=== PATIENT | female | born 1990 | race Hispanic/Latino ===

== ENCOUNTER 2016-05-23 08:15 | Emergency (ER) | payer SELFPAY ==
[2016-05-23] MEDS ORDERED: Benzonatate 100 MG CAP ONE (08:40)
[2016-05-23] MEDS ORDERED: Ondansetron ODT 4 MG TAB ONE (08:40)
[2016-05-23] MEDS ORDERED: Acetaminophen 325 MG TAB ONE (08:40)
--- NOTE | 2016-05-23 09:20 | ERRECORD ---
[facility] EMERGENCY RECORD HPI URI (08:39 [facility]) CHIEF COMPLAINT: Patient presents for evaluation of sore throat, Patient presents for evaluation of nasal congestion, Patient presents for evaluation of cough. HISTORIAN: History provided by patient, fever chills body aches cough sorethroat x 4 days also with nausea symptoms. LOCATION: Symptoms are generalized. QUALITY: Pain is dull in nature. SEVERITY: Maximum severity of symptoms moderate, Currently symptoms are moderate. TIME COURSE: Gradual onset of symptoms, There has been no change in the patient's symptoms over time. ASSOCIATED WITH: No associated chest pain, Associated with chills, Associated with fever, No associated headache, No associated neck pain, No associated shortness of breath. EXACERBATED BY: Patient's condition exacerbated by nothing. RELIEVED BY: Patient's condition relieved by over the counter medications, dayquil / nyquil. ROS CONSTITUTIONAL: Historian reports chills, reports fever. (08:40 [facility]) ENT: Historian reports rhinorrhea, reports sore throat. (08:41 [facility]) CARDIOVASCULAR: Negative cardiovascular review of systems, Historian denies chest pain, denies palpitations. (08:40 [facility]) RESPIRATORY: Historian reports cough. (08:40 [facility]) GI: Historian denies abdominal pain, reports nausea. (08:40 [facility]) GENITOURINARY FEMALE: Negative genitourinary review of systems, Historian denies dysuria, denies frequency. (08:40 [facility]) SKIN: Negative skin review of systems, Historian denies rash, denies skin changes. (08:40 [facility]) NEUROLOGIC: Negative neurologic review of systems, Historian denies headache. (08:40 [facility]) HEMO/LYMPHATIC: Normal hematologic/lymphatic system review, Historian denies abnormal blood clotting. (08:40 [facility]) PAST MEDICAL HISTORY (08:23 [facility]) MEDICAL HISTORY: Notes: SCOLIOSIS, Past medical history includes musculoskeletal disorder. reviewed 04-08-14. FEMALE SURGICAL HISTORY: EYE CORRECTION SURGERY FOR CROSSED EYES.reviewed 04-08-14. PSYCHIATRIC HISTORY: Psychiatric history includes, anxiety. SOCIAL HISTORY: Patient denies alcohol use, Patient denies drug use, Patient has no smoking history. KNOWN ALLERGIES NKDA, IS LACTOSE INTOLERANT &a-1R&a+25V*p+0X*c1445Q*c202B*c15G*c2P*p-0X&a-25V&a+1R Name: Pilar Garcia : 1990 F25 MedRec: [id number] AcctNum: [id number] Prepared: [facility] May 23, 2016 09:16 by Interface Page 1 of 3 pMD [facility] EMERGENCY RECORD CURRENT MEDICATIONS (08:21 [facility]) None VITAL SIGNS (08:18 [facility]) VITAL SIGNS: BP: 129/58, Pulse: 88, Resp: 18, Temp: 99.6 (Oral), Pain: 5, O2 sat: 97 on Room Air, Time: 05/23/2016 08:18. PHYSICAL EXAM CONSTITUTIONAL: Vital signs reviewed, Patient afebrile, Pulse normal, Blood pressure normal, Respiratory rate normal, Patient appears, uncomfortable, Patient appears pain free, Patient alert and oriented to person, place and time. (08:40 [facility]) ENT: Ear exam normal, Nose exam included findings of, clear nasal discharge, Pharynx exam normal. (08:41 [facility]) NECK: Neck exam normal, Neck exam included findings of normal range of motion, Trachea midline, no meningeal signs, no cervical adenopathy, no tenderness. (08:40 [facility]) RESPIRATORY CHEST: Respiratory and chest exam normal, Respiratory exam included findings of no respiratory distress, Breath sounds clear. (08:40 [facility]) CARDIOVASCULAR: Cardiovascular assessment normal, Cardiovascular exam included findings of heart rate regular rate and rhythm, Heart sounds normal. (08:40 [facility]) ABDOMEN FEMALE: Abdominal exam included findings of abdomen nontender, Bowel sounds normal, no distension, no mass, no pulsatile masses, no peritoneal signs, no rigidity, no guarding, no rebound, Rovsing's sign absent. (08:40 [facility]) BACK: Back exam normal, Back exam included findings of normal inspection, range of motion normal, no tenderness. (08:40 [facility]) NEURO: Neuro exam normal, Neuro exam findings include patient oriented to person, place and time, Speech normal, Gait normal. (08:40 [facility]) SKIN: Skin exam normal, Skin exam included findings of skin warm, dry, and normal in color, no rash. (08:40 [facility]) MEDICATION ADMINISTRATION SUMMARY Drug Name: *Tessalon Perles, Dose Ordered: 2 tab(s), Route: Oral, Status: Given, Time: 08:46 05/23/2016, Drug Name: *Tylenol, Dose Ordered: 3 tab(s), Route: Oral, Status: Given, Time: 08:46 05/23/2016, Drug Name: Zofran ODT, Dose Ordered: 4 mg, Route: Oral, Status: Given, Time: 08:43 05/23/2016, *Additional information available in notes, Detailed record available in Medication Service section. PROBLEM LIST No recorded problems DIAGNOSIS (09: [facility]) &a-1R&a+25V*p+0X*g1613H*c202B*c15G*c2P*p-0X&a-25V&a+1R Name: Pilar Garcia : 1990 F25 MedRec: [id number] AcctNum: [id number] Prepared: [facility] May 23, 2016 09:16 by Interface Page 2 of 3 pMD [facility] EMERGENCY RECORD FINAL: PRIMARY: upper respiratory infection. PRESCRIPTION (09:02 [facility]) azithromycin oral: TABLET : 250 mg : ORAL : Quantity: 1 Unit: tab(s) Route: ORAL Schedule: once a day Dispense: 6 Unit: tab(s) May substitute. Refills: No Refills . NOTES: zpak please take according to direction or 2 tablets the first day then 1 tablet daily the next 4 days No Refills. Mucinex D: TABLET, EXTENDED RELEASE 12 HR : 600 mg-60 mg : ORAL : Quantity: 1 Unit: tab(s) Route: ORAL Schedule: As Needed Dispense: 10 Unit: tab(s) May substitute. Refills: No Refills . NOTES: take 1 tablet every 12 hours as needed for congestion / cough No Refills. DISPOSITION PATIENT: Disposition Type: Discharge, Disposition: *Discharge Home. (09:03 [facility]) Patient left the department. (09: [facility]) Menendez: AURELIO=MD Corrie, Natalya [facility]=MENDOZA Loya, Cassie &a-1R&a+25V*p+0X*y9830A*c202B*c15G*c2P*p-0X&a-25V&a+1R Name: Pilar Garcia : 1990 F25 MedRec: [id number] AcctNum: [id number] Prepared: [facility] May 23, 2016 09:16 by Interface Page 3 of 3 pMD MTDD
--- NOTE | 2016-05-23 09:24 | PICIS ---
[facility] EMERGENCY RECORD TRIAGE (08:21 [facility]) TRIAGE NOTES: Pt reports feeling sick since Friday. She reports body aches, nausea, fever, sneezing, a runny nose and dizziness. Highest fever reported was 102, and says she's been taking Tylenol and Motrin around the clock for fever control. (08:21 [facility]) PATIENT: NAME: Pilar Garcia, AGE: 25, GENDER: female, : Fri1990, TIME OF GREET: FriMay 23, 2016 08:16, PREFERRED LANGUAGE: Mexican, ETHNICITY: or , ECODE BILLING MAP: [facility], SSN: [id number], Zip Code: [address], PHONE: , , , PERSON ID: [id number], PCP: [facility] (08:21 [facility]) KG WEIGHT: 54.4 (est.). (08:55 [facility]) COMPLAINT: BODY ACHES,FEVER,COUGH. (08:21 [facility]) ADMISSION: URGENCY: 5 Fast Track, ADMISSION SOURCE: Home, TRANSPORT: Walk-in, BED: TRIAGE. (08:21 [facility]) IMMUNIZATIONS: Flu vaccine not up to date, Tetanus not up to date. (08:23 [facility]) SIRS SCORING: Heart Rate 55-109 (0), Temp range 96.8-101.1 (0), respiratory rate 12-24 (0), Mental Status altered: no (0). (08:23 [facility]) TRIAGE SCREENING: Patient denies suicidal ideation, Patient denies presence of domestic violence. (08:23 [facility]) LMP: LMP: Unknown, , P: 2. (08:23 [facility]) PROVIDERS: TRIAGE NURSE: Cassie Loya RN. (08:21 [facility]) VITAL SIGNS: BP 129/58, Pulse 88, Resp 18, Temp 99.6, (Oral), Pain 5, O2 Sat 97, on Room Air, Time 05/23/2016 08:18. (08:18 [facility]) PREVIOUS VISIT ALLERGIES: NKDA, IS LACTOSE INTOLERANT. (08:21 [facility]) NKDA, IS LACTOSE INTOLERANT. (08:23 [facility]) KNOWN ALLERGIES NKDA, IS LACTOSE INTOLERANT CURRENT MEDICATIONS (08:21 [facility]) None VITAL SIGNS (08:18 [facility]) VITAL SIGNS: BP: 129/58, Pulse: 88, Resp: 18, Temp: 99.6 (Oral), Pain: 5, O2 sat: 97 on Room Air, Time: 05/23/2016 08:18. NURSING ASSESSMENT: ENT (08:29 [facility]) CONSTITUTIONAL: Complex assessment performed, Patient arrives ambulatory, Gait steady, History obtained from patient, Patient appears comfortable, Patient cooperative, Patient alert, Oriented to person, place and time, Skin warm, Skin dry, Skin normal in color, Mucous membranes pink, Mucous membranes moist, Patient is well-groomed, Pt reporting flu symptoms since Friday, and has been taking Dayquil, Tylenol and Motrin for symptom and fever control &a-1R&a+25V*p+0X*e0828R*c202B*c15G*c2P*p-0X&a-25V&a+1R Name: Pilar Garcia : 1990 F25 MedRec: [id number] AcctNum: [id number] Prepared: Marycruz May 23, 2016 09:22 by Interface Page 1 of 7 pMD [facility] EMERGENCY RECORD around the clock. PAIN: on a scale 0-10 patient rates pain as 5. ENT: Ear assessment findings include ear normal to inspection, Nasal assessment findings include nose normal to inspection, Sinuses normal, Nasal mucosa normal, Mouth and throat assessment findings include mouth inspection normal, Uvula normal, Tonsils normal, Mucous membranes pink, and moist, Able to swallow, Speech normal, Associated with headache. RESPIRATORY/CHEST: Breath sounds clear, Respiratory assessment findings include respiratory effort easy, Respirations regular, Conversing normally, Neck and chest exam findings include trachea midline, Chest expansion equal, Chest movement symmetrical, Associated with cough, Associated with fever, Maximum temperature 102, oral, Notes: Pt is coughing frequently and reporting soreness, but breath sounds are clear bilaterally over all lung curry. SAFETY: Side rails up, Cart/Stretcher in lowest position, Call light within reach, Hospital ID band on. NURSING PROCEDURE: DISCHARGE NOTE (09:08 [facility]) DISCHARGE: Patient discharged to home, ambulating without assistance, driving self, unaccompanied, Discharge instructions given to patient, Simple or moderate discharge teaching performed, by MENDOZA Matthews, Patient treated and evaluated by physician. BELONGINGS: Belongings and valuables with patient upon arrival to the Emergency Department include:, Belongings and valuables with patient at time of discharge include:. SAFETY: Side rails up, Cart/Stretcher in lowest position, Call light within reach, Hospital ID band on. NURSING PROCEDURE: ENT (08:29 [facility]) ENT: Nasal swab collected, labeled in the presence of the patient and sent to lab for testing of, influenza A, influenza B, collected by MENDOZA Gaona. SAFETY: Side rails up, Cart/Stretcher in lowest position, Call light within reach, Hospital ID band on. ORDER DETAILS Order Name: Influenza A&B Ag Screen, Status: Active, Time: 08:22 05/23/2016, User: AURELIO, - Ordered for: MD Corrie, Natalya, - Entered by: MD Denton Kim - FriMay 23, 2016 08:22, - Quantity: 1. MEDICATION ADMINISTRATION SUMMARY Drug Name: *Dignasaladam Salcedo, Dose Ordered: 2 tab(s), Route: Oral, Status: Given, Time: 08:46 05/23/2016, Drug Name: *Tylenol, Dose Ordered: 3 tab(s), Route: Oral, Status: &a-1R&a+25V*p+0X*o1237A*c202B*c15G*c2P*p-0X&a-25V&a+1R Name: Pilar Garcia : 1990 F25 MedRec: [id number] AcctNum: [id number] Prepared: FriMay 23, 2016 09:22 by Interface Page 2 of 7 pMD [facility] EMERGENCY RECORD Given, Time: 08:46 05/23/2016, Drug Name: Zofran ODT, Dose Ordered: 4 mg, Route: Oral, Status: Given, Time: 08:43 05/23/2016, *Additional information available in notes, Detailed record available in Medication Service section. MEDICATION SERVICE Maria Elena Salcedo: Order: Maria Elena Salcedo (benzonatate) - Dose: 2 tab(s) : Oral Schedule: Now Notes: 200 mg orally once Ordered by: Natalya Denton MD Entered by: Natalya Denton MD [facility] May 23, 2016 08:36 , Acknowledged by: Cassie Loya RN [facility] May 23, 2016 08:38 Documented as given by: Cassie Loya RN [facility] May 23, 2016 08:46 Patient, Medication, Dose, Route and Time verified prior to administration. Amount given: 200 mg, Site: Medication administered P.O., Correct patient, time, route, dose and medication confirmed prior to administration, Patient advised of actions and side-effects prior to administration, Allergies confirmed and medications reviewed prior to administration, Patient tolerated procedure well, Administered by MENDOZA Matthews, Patient in position of comfort, Side rails up, Cart in lowest position, Call light in reach. Tylenol: Order: Tylenol (acetaminophen) - Dose: 3 tab(s) : Oral Schedule: Now Notes: 975 mg orally once Ordered by: Natalya Denton MD Entered by: Natalya Denton MD [facility] May 23, 2016 08:37 , Acknowledged by: Cassie Loya RN [facility] May 23, 2016 08:38 Documented as given by: Cassie Loya RN [facility] May 23, 2016 08:46 Patient, Medication, Dose, Route and Time verified prior to administration. Amount given: 975 mg, Site: Medication administered P.O., Correct patient, time, route, dose and medication confirmed prior to administration, Patient advised of actions and side-effects prior to administration, Allergies confirmed and medications reviewed prior to administration, Patient tolerated procedure well, Administered by MENDOZA Matthews, Patient in position of comfort, Side rails up, Cart in lowest position, Call light in reach. Zofran ODT: Order: Zofran ODT (ondansetron) - Dose: 4 mg : Oral Schedule: Now Ordered by: Natalya Denton MD Entered by: Natalya Denton MD [facility] May 23, 2016 08:36 , Acknowledged by: Cassie Loya RN [facility] May 23, 2016 08:38 Documented as given by: Cassie Loya RN [facility] May 23, 2016 08:43 Patient, Medication, Dose, Route and Time verified prior to administration. Amount given: 4 mg, Site: Medication administered S.L., Correct &a-1R&a+25V*p+0X*e0878B*c202B*c15G*c2P*p-0X&a-25V&a+1R Name: Pilar Garcia : 1990 F25 MedRec: [id number] AcctNum: [id number] Prepared: Marycruz May 23, 2016 09:22 by Interface Page 3 of 7 pMD [facility] EMERGENCY RECORD patient, time, route, dose and medication confirmed prior to administration, Patient advised of actions and side-effects prior to administration, Allergies confirmed and medications reviewed prior to administration, Patient tolerated procedure well, Administered by MENDOZA Matthews, Patient in position of comfort, Side rails up, Cart in lowest position, Call light in reach. HPI URI (08:39 [facility]) CHIEF COMPLAINT: Patient presents for evaluation of sore throat, Patient presents for evaluation of nasal congestion, Patient presents for evaluation of cough. HISTORIAN: History provided by patient, fever chills body aches cough sorethroat x 4 days also with nausea symptoms. LOCATION: Symptoms are generalized. QUALITY: Pain is dull in nature. SEVERITY: Maximum severity of symptoms moderate, Currently symptoms are moderate. TIME COURSE: Gradual onset of symptoms, There has been no change in the patient's symptoms over time. ASSOCIATED WITH: No associated chest pain, Associated with chills, Associated with fever, No associated headache, No associated neck pain, No associated shortness of breath. EXACERBATED BY: Patient's condition exacerbated by nothing. RELIEVED BY: Patient's condition relieved by over the counter medications, dayquil / nyquil. ROS CONSTITUTIONAL: Historian reports chills, reports fever. (08:40 [facility]) ENT: Historian reports rhinorrhea, reports sore throat. (08:41 [facility]) CARDIOVASCULAR: Negative cardiovascular review of systems, Historian denies chest pain, denies palpitations. (08:40 [facility]) RESPIRATORY: Historian reports cough. (08:40 [facility]) GI: Historian denies abdominal pain, reports nausea. (08:40 [facility]) GENITOURINARY FEMALE: Negative genitourinary review of systems, Historian denies dysuria, denies frequency. (08:40 [facility]) SKIN: Negative skin review of systems, Historian denies rash, denies skin changes. (08:40 [facility]) NEUROLOGIC: Negative neurologic review of systems, Historian denies headache. (08:40 [facility]) HEMO/LYMPHATIC: Normal hematologic/lymphatic system review, Historian denies abnormal blood clotting. (08:40 [facility]) PAST MEDICAL HISTORY (08:23 [facility]) MEDICAL HISTORY: Notes: SCOLIOSIS, Past medical history includes musculoskeletal disorder. reviewed 04-08-14. FEMALE SURGICAL HISTORY: EYE CORRECTION SURGERY FOR CROSSED EYES.reviewed 04-08-14. &a-1R&a+25V*p+0X*g5792A*c202B*c15G*c2P*p-0X&a-25V&a+1R Name: Pilar Garcia : 1990 F25 MedRec: [id number] AcctNum: [id number] Prepared: Marycruz May 23, 2016 09:22 by Interface Page 4 of 7 pMD [facility] EMERGENCY RECORD PSYCHIATRIC HISTORY: Psychiatric history includes, anxiety. SOCIAL HISTORY: Patient denies alcohol use, Patient denies drug use, Patient has no smoking history. PHYSICAL EXAM CONSTITUTIONAL: Vital signs reviewed, Patient afebrile, Pulse normal, Blood pressure normal, Respiratory rate normal, Patient appears, uncomfortable, Patient appears pain free, Patient alert and oriented to person, place and time. (08:40 [facility]) ENT: Ear exam normal, Nose exam included findings of, clear nasal discharge, Pharynx exam normal. (08:41 [facility]) NECK: Neck exam normal, Neck exam included findings of normal range of motion, Trachea midline, no meningeal signs, no cervical adenopathy, no tenderness. (08:40 [facility]) RESPIRATORY CHEST: Respiratory and chest exam normal, Respiratory exam included findings of no respiratory distress, Breath sounds clear. (08:40 [facility]) CARDIOVASCULAR: Cardiovascular assessment normal, Cardiovascular exam included findings of heart rate regular rate and rhythm, Heart sounds normal. (08:40 [facility]) ABDOMEN FEMALE: Abdominal exam included findings of abdomen nontender, Bowel sounds normal, no distension, no mass, no pulsatile masses, no peritoneal signs, no rigidity, no guarding, no rebound, Rovsing's sign absent. (08:40 [facility]) BACK: Back exam normal, Back exam included findings of normal inspection, range of motion normal, no tenderness. (08:40 [facility]) NEURO: Neuro exam normal, Neuro exam findings include patient oriented to person, place and time, Speech normal, Gait normal. (08:40 [facility]) SKIN: Skin exam normal, Skin exam included findings of skin warm, dry, and normal in color, no rash. (08:40 [facility]) EVENTS TRANSFER: Triage to Emergency Triage. (Marycruz May 23, 2016 08:21 [facility]) Emergency Triage to Emergency Room -02. (08:21 [facility]) Removed from Emergency Emergency Room -02. (09:10 [facility]) PROBLEM LIST No recorded problems DIAGNOSIS (09:03 [facility]) FINAL: PRIMARY: upper respiratory infection. DISPOSITION PATIENT: Disposition Type: Discharge, Disposition: *Discharge Home. (09:03 [facility]) Patient left the department. (09:10 [facility]) &a-1R&a+25V*p+0X*y6262K*c202B*c15G*c2P*p-0X&a-25V&a+1R Name: Pilar Garcia : 1990 F25 MedRec: [id number] AcctNum: [id number] Prepared: Marycruz May 23, 2016 09:22 by Interface Page 5 of 7 pMD [facility] EMERGENCY RECORD INSTRUCTION (09:03 [facility]) DISCHARGE: UPPER RESP INFECTION ANTIBIOTIC TREATMENT ADULT. FOLLOWUP: [facility], [address] [place] [address] , . SPECIAL: please increase fluid intake Tylenol/motrin as needed for pain or fever Follow-up with your primary physician as needed. PRESCRIPTION (09:02 [facility]) azithromycin oral: TABLET : 250 mg : ORAL : Quantity: 1 Unit: tab(s) Route: ORAL Schedule: once a day Dispense: 6 Unit: tab(s) May substitute. Refills: No Refills . NOTES: zpak please take according to direction or 2 tablets the first day then 1 tablet daily the next 4 days No Refills. Mucinex D: TABLET, EXTENDED RELEASE 12 HR : 600 mg-60 mg : ORAL : Quantity: 1 Unit: tab(s) Route: ORAL Schedule: As Needed Dispense: 10 Unit: tab(s) May substitute. Refills: No Refills . NOTES: take 1 tablet every 12 hours as needed for congestion / cough No Refills. IMAGING (09:10 [facility]) *DISCHARGE INSTRUCTIONS RECEIPT: Image captured from scanner. *SUPPLY CHARGE SHEET: Image captured from scanner. ADMIN (09:12 [facility]) DIGITAL SIGNATURE: MD Denton Kim. RESULTS (08:54 [facility]) MICROBIOLOGY: Influenza A&B Ag Screen: [id number] Collection DT: FriMay 23, 2016 08:30, See comment below , @ ER ROOM#: ER-02 Source: Nasal swab Spec Desc: , Influenza A Antigen: NEGATIVE for the , presence of , INFLUENZA A Antigen , Influenza B Antigen: NEGATIVE for the , presence of , INFLUENZA B Antigen , The rapid Flu A&B test can distinguish between influenza A , Influenza A&B Ag Screen See comment below , and B viruses, but it does not differentiate influenza , Influenza A&B Ag Screen See comment below , subtypes. , Influenza A&B Ag Screen See comment below , Influenza A&B Ag Screen See comment below , Influenza A&B Ag Screen See comment below , &a-1R&a+25V*p+0X*p3693H*c202B*c15G*c2P*p-0X&a-25V&a+1R Name: Pilar Garcia : 1990 F25 MedRec: [id number] AcctNum: [id number] Prepared: FriMay 23, 2016 09:22 by Interface Page 6 of 7 pMD [facility] EMERGENCY RECORD Influenza A&B Ag Screen See comment below , characteristics of this device with human specimens infected , Influenza A&B Ag Screen See comment below , with the 2008 H1N1 influenza virus have not been , Influenza A&B Ag Screen See comment below , established. For example: this test cannot distinguish , Influenza A&B Ag Screen See comment below , influenza infections caused by novel H1N1 influenza A , Influenza A&B Ag Screen See comment below , viruses versus seasonal influenza A viruses. , Influenza A&B Ag Screen See comment below , , Influenza A&B Ag Screen See comment below , A negative result does not exclude influenza virus , Influenza A&B Ag Screen See comment below , infection; therefore, if more conclusive testing is desired, , Influenza A&B Ag Screen See comment below , follow up confirmatory testing is warranted., Influenza A&B Ag Screen See comment below . Menendez: AURELIO=MD Corrie, Natalya [facility]=MENDOZA Loya, Cassie &a-1R&a+25V*p+0X*l6700A*c202B*c15G*c2P*p-0X&a-25V&a+1R Name: Pilar Garcia : 1990 F25 MedRec: [id number] AcctNum: [id number] Prepared: Marycruz May 23, 2016 09:22 by Interface Page 7 of 7 pMD MTDD
== END 2016-05-23 09:06 | disposition home or self-care (01) ==
LOC: NAV ERS 08:15
DX: J06.9 Acute upper respiratory infection, unspecified (principal); F41.9 Anxiety disorder, unspecified
CPT/HCPCS: 99283; Q0162

== ENCOUNTER 2017-09-17 17:59 | Emergency (ER) | payer MEDICAID, SELFPAY ==
[2017-09-17] MEDS ORDERED: Morphine 4 MG/ML Carpuject ONE ×3 (18:26→22:12)
[2017-09-17] MEDS ORDERED: Sodium Chloride 0.9% 1,000 ML ONE (18:26)
[2017-09-17 18:48] LABS: ALT (SGPT) 11 U/L (8-55); AST (SGOT) 14 U/L (5-34); Albumin 4.1 g/dL (3.5-5.0); Alkaline Phosphatase 89 U/L (40-150); Anion Gap 12 mmol/L (10-20); BUN (Urea Nitrogen) 5 mg/dL (7.0-18.7); Bilirubin, Total 0.3 mg/dL (0.2-1.2); Calc. Creatinine Clearance 0 mL/min (70-130); Calcium 8.6 mg/dL (7.8-10.44); Carbon Dioxide 22 mmol/L (22-29); Chloride 109 mmol/L (98-107); Estimated GFR-MDRD Greater than 90; Globulin 2.8 g/dL (2.4-3.5); Glucose 147 mg/dL (70-105); Lipase 13 U/L (8-78); Potassium 3.7 mmol/L (3.5-5.1); Protein, Total 6.9 g/dL (6.0-8.3); Sodium 139 mmol/L (136-145)
[2017-09-17 18:50] LABS: #Basophils 0.1 thou/uL (0.0-0.2); #Eosinphils 0.1 thou/uL (0.0-0.7); #Lymphocytes 3.1 thou/uL (1.20-3.40); #Monocytes 0.4 thou/uL (0.11-0.59); #Neutrophils 5.9 thou/uL (1.40-6.50); %Basophils 0.7 % (0.0-1.0); %Eosinophils 1.5 % (0.0-10.0); %Lymphocytes 32.5 % (21.0-51.0); %Monocytes 4.2 % (0.0-10.0); Hemoglobin 13.2 g/dL (12.0-16.0); Mean Corpuscular HGB CONC 32.8 g/dL (32.0-36.0); Mean Corpuscular Hemoglobin 28.4 pg (27.0-31.0); Mean Corpuscular Volume 86.8 fl (81.0-99.0); Mean Platelet Volume 5.7 fL (7.4-10.4); Platelet Count 328 thou/uL (130-400); RBC Distribution Width 11.8 % (11.5-14.5); Red Blood Cell (RBC) Count 4.64 mill/uL (4.20-5.40); White Blood Cell (WBC) Count 9.6 thou/uL (4.8-10.8)
[2017-09-17] MEDS ORDERED: Sodium Chloride 0.9% 500 ML ONE ×2 (19:59→20:57)
[2017-09-17 21:58] LABS: Pregnancy Test - Urine (BHCG) POSITIVE (Negative); Pregu Control Background? CLEAR/WHITE (CLR/WHITE); Pregu Control Bar Appear? YES (CONTROL BAR); Specific Gravity 1.025 (1.002-1.036)
[2017-09-17 22:01] LABS: Bilirubin Negative (Negative); Blood, Urine Large (Negative); Clarity Hazy (Clear); Glucose, Urine (Dipstick) Negative (Negative); Leukocyte Moderate (Negative); Nitrite Negative (Negative); Protein, Urine (Dipstick) 30 mg/dL (Neg-Trace); RBC/HPF 21-50 HPF (0-3); Specific Gravity, Urine 1.025 (1.005-1.030); Urobilinogen 0.2 mg/dL (0.2-1.0); pH, Urine 6.5 (5.0-9.0)
[2017-09-17 22:02] LABS: Bacteria/HPF Rare-Few HPF (None Seen); Crystals/HPF 1+ AMORPH URATES HPF (Negative)
[2017-09-17] MEDS ORDERED: Ondansetron HCl/PF 4 MG/2 ML Vial ONE (22:25)
== END 2017-09-17 22:45 | disposition short-term general hospital (02) ==
LOC: NAV ERS 17:59
DX: O99.89 Other specified diseases and conditions complicating pregnancy, childbirth and the puerperium (principal); R10.9 Unspecified abdominal pain; R30.0 Dysuria; O99.341 Other mental disorders complicating pregnancy, first trimester; F41.9 Anxiety disorder, unspecified; M41.9 Scoliosis, unspecified; Z3A.01 Less than 8 weeks gestation of pregnancy
CPT/HCPCS: 80053; 81003; 81015; 81025; 83605; 83690; 84702; 85025; 87086; 96361; 96374; 96375; 96376; J2270; J2405; J7050

== ENCOUNTER 2018-11-06 11:05 | Emergency (ER) | payer MEDICAID, OTHER | END 2018-11-06 11:41 | disposition home or self-care (01) | LOC: NAV ERS 11:05 | DX: G56.01 Carpal tunnel syndrome, right upper limb (principal); F41.9 Anxiety disorder, unspecified; Z79.899 Other long term (current) drug therapy | CPT/HCPCS: 99283 ==

== ENCOUNTER 2020-06-27 04:41 | Emergency (ER) | payer OTHER ==
[2020-06-27 05:15] LABS: Bilirubin Negative (Negative); Blood, Urine Large (Negative); Clarity Cloudy (Clear); Glucose, Urine (Dipstick) Negative (Negative); Ketone, Urine Negative (Negative); Leukocyte Small (Negative); Nitrite Negative (Negative); Protein, Urine (Dipstick) 30 mg/dL (Neg-Trace); Specific Gravity, Urine 1.015 (1.005-1.030); Urobilinogen 0.2 mg/dL (Less than 2); pH, Urine 6.5 (5.0-9.0)
[2020-06-27 05:17] LABS: Pregnancy Test - Urine (BHCG) Negative (Negative); Specific Gravity 1.015 (1.002-1.036)
[2020-06-27 05:18] LABS: Pregu Control Background? CLEAR/WHITE (CLR/WHITE); Pregu Control Bar Appear? YES (CONTROL BAR)
[2020-06-27 05:24] LABS: Bacteria/HPF Rare-Few HPF (None Seen); RBC/HPF 21-50 HPF (0-3)
[2020-06-27] MEDS ORDERED: Sulfameth/Trimethoprim DS 800-160mg TAB ONE (05:26)
[2020-06-27] MEDS ORDERED: Ondansetron ODT 4 MG TAB ONE (05:26)
[2020-06-27] MEDS ORDERED: Lidocaine 1% (PF) 30 ML VIAL ONE (05:26)
[2020-06-27] MEDS ORDERED: cefTRIAXone\\ROCEPHIN 1 GM VIAL ONE (05:26)
== END 2020-06-27 05:55 | disposition home or self-care (01) ==
LOC: NAV ERS 04:41
DX: N39.0 Urinary tract infection, site not specified (principal)
CPT/HCPCS: 81003; 81015; 81025; 87086; 96372; 99284; J0696; J2001; Q0162

== ENCOUNTER 2020-11-16 22:11 | Emergency (ER) | payer OTHER ==
[2020-11-16 22:45] LABS: Bilirubin Negative (Negative); Blood, Urine Negative (Negative); Clarity Clear (Clear); Glucose, Urine (Dipstick) Negative (Negative); Ketone, Urine Trace mg/dL (Negative); Leukocyte Negative (Negative); Nitrite Negative (Negative); Protein, Urine (Dipstick) Negative (Neg-Trace); Specific Gravity, Urine 1.015 (1.005-1.030); Urobilinogen 0.2 mg/dL (Less than 2)
[2020-11-16 22:46] LABS: Pregnancy Test - Urine (BHCG) Negative (Negative)
[2020-11-16 22:47] LABS: Pregu Control Background? CLEAR/WHITE (CLR/WHITE); Pregu Control Bar Appear? YES (CONTROL BAR); Specific Gravity 1.015 (1.002-1.036)
[2020-11-16 23:16] LABS: #Eosinphils 0.1 thou/uL (0.0-0.7); #Lymphocytes 3.3 thou/uL (1.20-3.40); #Monocytes 0.7 thou/uL (0.11-0.59); %Basophils 0.4 % (0.0-1.0); %Eosinophils 1.2 % (0.0-10.0); %Lymphocytes 27.1 % (21.0-51.0); %Monocytes 5.5 % (0.0-10.0); %Neutrophils 65.8 % (42.0-75.0); Hemoglobin 13.7 g/dL (12.0-16.0); Mean Corpuscular HGB CONC 32.3 g/dL (32.0-36.0); Mean Corpuscular Hemoglobin 29.9 pg (27.0-31.0); Mean Corpuscular Volume 92.5 fL (78.0-98.0); Mean Platelet Volume 5.9 fL (7.4-10.4); Platelet Count 321 thou/uL (130-400); RBC Distribution Width 11.8 % (11.5-14.5); Red Blood Cell (RBC) Count 4.58 mill/uL (4.20-5.40); White Blood Cell (WBC) Count 12.2 thou/uL (4.8-10.8)
[2020-11-16 23:33] LABS: ALT (SGPT) 11 U/L (8-55); AST (SGOT) 17 U/L (5-34); Albumin 4.3 g/dL (3.5-5.0); Alkaline Phosphatase 86 U/L (40-110); Anion Gap 12 mmol/L (10-20); BUN (Urea Nitrogen) 6 mg/dL (7.0-18.7); Bilirubin, Total 0.5 mg/dL (0.2-1.2); Calc. Creatinine Clearance 0 mL/min (70-130); Calcium 9.3 mg/dL (7.8-10.44); Carbon Dioxide 26 mmol/L (22-29); Chloride 102 mmol/L (98-107); Globulin 3.4 g/dL (2.4-3.5); Glucose 94 mg/dL (70-105); Potassium 3.3 mmol/L (3.5-5.1); Protein, Total 7.7 g/dL (6.0-8.3); Sodium 137 mmol/L (136-145)
[2020-11-19 18:07] LABS: Chlam.trachomatis by PCR,Urine Not Detected (NotDetected)
== END 2020-11-17 01:10 | disposition short-term general hospital (02) ==
LOC: NAV ERS 22:11
DX: R10.32 Left lower quadrant pain (principal)
CPT/HCPCS: 80053; 81003; 81025; 85025; 87491; 87591; 99284

== ENCOUNTER 2021-01-03 12:18 | Emergency (ER) | payer OTHER ==
[2021-01-04 11:50] LABS: SARS-CoV-2 PCR by NAA DETECTED (NotDetected)
== END 2021-01-03 13:10 | disposition home or self-care (01) ==
LOC: NAV ERS 12:18
DX: U07.1 COVID-19 (principal)
CPT/HCPCS: 99284; U0003; U0005

== ENCOUNTER 2021-02-13 17:53 | Emergency (ER) | payer OTHER ==
[2021-02-13 18:06] LABS: Clarity Slightly Cloudy (Clear); Specific Gravity, Urine 1.004 (1.002-1.036)
[2021-02-13 18:13] LABS: Bacteria/HPF 2+ HPF (None Seen); Mucous/LPF 1+ LPF (<2+); Squamous Epithelial 0-3 HPF (0-3); WBC/HPF 21-50 HPF (0-3)
[2021-02-13] MEDS ORDERED: Acetaminophen 500 MG TAB ONE (18:13)
[2021-02-13] MEDS ORDERED: Nitrofurantoin Macrocrystal 50 MG CAP ONE (18:13)
[2021-02-13] MEDS ORDERED: Ondansetron ODT 4 MG TAB ONE (18:14)
[2021-02-13 18:46] LABS: Pregnancy Test - Urine (BHCG) Negative (Negative); Pregu Control Background? CLEAR/WHITE (CLR/WHITE); Pregu Control Bar Appear? YES (CONTROL BAR); Specific Gravity 1.004 (1.002-1.036)
== END 2021-02-13 18:21 | disposition home or self-care (01) ==
LOC: NAV ERS 17:53
DX: N39.0 Urinary tract infection, site not specified (principal); M41.9 Scoliosis, unspecified
CPT/HCPCS: 81003; 81015; 81025; 87077; 87086; 87186; 99283; Q0162

== ENCOUNTER 2021-03-12 19:55 | Emergency (ER) | payer OTHER ==
[2021-03-12 20:26] LABS: Clarity Cloudy (Clear)
[2021-03-12 20:36] LABS: WBC/HPF 21-50 HPF (0-3)
[2021-03-12 20:37] LABS: Bacteria/HPF 1+ HPF (None Seen); Renal Epithelial None Seen HPF (None Seen); Squamous Epithelial 0-3 HPF (0-3); Transitional Epithelial None Seen HPF (None Seen)
[2021-03-12 20:38] LABS: Sperm/HPF 1+ HPF (None Seen)
[2021-03-12 20:39] LABS: Mucous/LPF 1+ LPF (<2+)
[2021-03-12] MEDS ORDERED: Nitrofurantoin Macrocrystal 50 MG CAP ONE (20:55)
== END 2021-03-12 21:00 | disposition home or self-care (01) ==
LOC: NAV ERS 19:55
DX: N39.0 Urinary tract infection, site not specified (principal); Z79.899 Other long term (current) drug therapy
CPT/HCPCS: 81003; 81015; 87086; 99283

== ENCOUNTER 2021-04-06 12:11 | Emergency (ER) | payer OTHER ==
[2021-04-06 12:46] LABS: Bilirubin Negative (Negative); Blood, Urine Large (Negative); Clarity Clear (Clear); Glucose, Urine (Dipstick) 100 mg/dL (Negative); Ketone, Urine Negative (Negative); Leukocyte Large (Negative); Nitrite Positive (Negative); Protein, Urine (Dipstick) 30 mg/dL (Neg-Trace); pH, Urine 5.5 (5.0-9.0)
[2021-04-06 12:57] LABS: Bacteria/HPF 1+ HPF (None Seen); Squamous Epithelial 0-3 HPF (0-3); WBC/HPF 21-50 HPF (0-3)
[2021-04-06 13:00] LABS: Pregnancy Test - Urine (BHCG) Negative (Negative); Pregu Control Background? CLEAR/WHITE (CLR/WHITE); Pregu Control Bar Appear? YES (CONTROL BAR)
== END 2021-04-06 13:04 | disposition home or self-care (01) ==
LOC: NAV ERS 12:11
DX: N30.00 Acute cystitis without hematuria (principal); M41.9 Scoliosis, unspecified
CPT/HCPCS: 81003; 81015; 81025; 87086; 99284

== ENCOUNTER 2021-04-06 20:00 | Emergency (ER) | payer OTHER ==
[2021-04-06 20:37] LABS: #Basophils 0.1 thou/uL (0.0-0.2); #Eosinphils 0.2 thou/uL (0.0-0.7); #Lymphocytes 3.2 thou/uL (1.20-3.40); #Monocytes 0.6 thou/uL (0.11-0.59); #Neutrophils 5.8 thou/uL (1.40-6.50); %Basophils 0.8 % (0.0-1.0); %Eosinophils 1.9 % (0.0-10.0); %Lymphocytes 32.6 % (21.0-51.0); %Monocytes 6.5 % (0.0-10.0); %Neutrophils 58.2 % (42.0-75.0); Hemoglobin 12.9 g/dL (12.0-16.0); Mean Corpuscular HGB CONC 31.9 g/dL (32.0-36.0); Mean Corpuscular Volume 93.8 fL (78.0-98.0); Mean Platelet Volume 5.7 fL (7.4-10.4); Platelet Count 398 thou/uL (130-400); RBC Distribution Width 12.2 % (11.5-14.5); Red Blood Cell (RBC) Count 4.31 mill/uL (4.20-5.40); White Blood Cell (WBC) Count 9.9 thou/uL (4.8-10.8)
[2021-04-06] MEDS ORDERED: Aspirin Chewable 81 MG TAB ONE (20:49)
[2021-04-06 20:57] LABS: Acetaminophen Less than 6.0 mcg/mL (10.0-30.0); Alcohol Less than 10 mg/dL (Less than 10); CK (CPK) 113 U/L (29-168); Salicylate Less than 8.0 mg/dL (15.0-30.0)
[2021-04-06 21:01] LABS: ALT (SGPT) 10 U/L (8-55); AST (SGOT) 16 U/L (5-34); Albumin 4.3 g/dL (3.5-5.0); Alkaline Phosphatase 82 U/L (40-110); Anion Gap 13 mmol/L (10-20); BUN (Urea Nitrogen) 6 mg/dL (7.0-18.7); Bilirubin, Total 0.5 mg/dL (0.2-1.2); Calc. Creatinine Clearance 0 mL/min (70-130); Calcium 9.4 mg/dL (7.8-10.44); Carbon Dioxide 26 mmol/L (22-29); Chloride 107 mmol/L (98-107); Globulin 3.3 g/dL (2.4-3.5); Glucose 73 mg/dL (70-105); Protein, Total 7.6 g/dL (6.0-8.3); Sodium 143 mmol/L (136-145)
[2021-04-06 21:07] LABS: Base Excess-Venous 1.5 mmol/L (-2.0 to 3.0); Bicarbonate (HCO3v) 26.7 mmol/L (22.0-28.0); CO2 Tension (PvCO2) 43.5 mmHg (42.0-51.0); Hemoglobin - Calc 13.1 g/dL (12.0-16.0); vO2 Saturation-calc 74.5 % (60.0-85.0)
[2021-04-06 21:08] LABS: Sodium 146 mmol/L (138-145)
[2021-04-06 21:09] LABS: Calcium, Ionized 1.14 mmol/L (1.15-1.33); Chloride 105 mmol/L (98-107); Potassium 2.9 mmol/L (3.5-5.1)
[2021-04-06 21:26] LABS: Amphetamine Not Detected (NotDetected); Barbiturates Screen Not Detected (NotDetected); Benzodiazepine Screen Not Detected (NotDetected); Cocaine Metabolite Screen Not Detected (NotDetected); Methadone Not Detected (NotDetected); Methamphetamine Not Detected (NotDetected); Opiate Screen Not Detected (NotDetected); Phencyclidine (PCP) Not Detected (NotDetected); THC/Cannabinoid Screen Detected (NotDetected); Tricyclic Screen Not Detected (NotDetected)
[2021-04-06 21:27] LABS: Medtox Control Line Valid? VALID (VALID); Oxycodone Screen Not Detected (NotDetected)
[2021-04-06 21:38] LABS: SARS-CoV-2 NAA Rapid Test Not Detected (NotDetected)
== END 2021-04-06 21:05 | disposition short-term general hospital (02) ==
LOC: NAV ERS 20:00
DX: R09.02 Hypoxemia (principal); R23.0 Cyanosis; M41.9 Scoliosis, unspecified; Z20.822 Contact with and (suspected) exposure to COVID-19
CPT/HCPCS: 71045; 80053; 80306; 80307; 82330; 82550; 82803; 83605; 83880; 84484; 85025; 85379; 93005; 94760; U0002

== ENCOUNTER 2021-07-24 07:22 | Emergency (ER) | payer OTHER ==
[2021-07-24 07:46] LABS: Bilirubin Negative (Negative); Blood, Urine Negative (Negative); Clarity Clear (Clear); Glucose, Urine (Dipstick) 100 mg/dL (Negative); Ketone, Urine Negative (Negative); Protein, Urine (Dipstick) Negative (Neg-Trace); Specific Gravity, Urine 1.005 (1.002-1.036)
[2021-07-24 07:47] LABS: Leukocyte Negative (Negative); Nitrite Negative (Negative)
== END 2021-07-24 08:17 | disposition home or self-care (01) ==
LOC: NAV ERS 07:22
DX: R30.0 Dysuria (principal)
CPT/HCPCS: 81003; 99283

== ENCOUNTER 2022-02-12 16:47 | Emergency (ER) | payer OTHER ==
[2022-02-12 17:37] LABS: Clarity Slightly Cloudy (Clear); Specific Gravity, Urine 1.015 (1.005-1.030)
[2022-02-12 17:38] LABS: Bilirubin Unable to Interpret (Negative); Blood, Urine Unable to Interpret (Negative); Glucose, Urine (Dipstick) Unable to Interpret mg/dL (Negative); Ketone, Urine Unable to Interpret mg/dL (Negative); Leukocyte Unable to Interpret (Negative); Nitrite Unable to Interpret (Negative); Protein, Urine (Dipstick) Unable to Interpret mg/dL (Neg-Trace); Urobilinogen UNABLE TO INTERPRET mg/dL (Less than 2)
[2022-02-12 17:44] LABS: WBC/HPF Greater than 50 HPF (0-3)
[2022-02-12 17:45] LABS: Bacteria/HPF 2+ HPF (None Seen)
[2022-02-12] MEDS ORDERED: Sulfameth/Trimethoprim DS 800-160mg TAB ONE (18:10)
== END 2022-02-12 18:13 | disposition home or self-care (01) ==
LOC: NAV ERS 16:47
DX: N39.0 Urinary tract infection, site not specified (principal)
CPT/HCPCS: 81003; 81015; 87077; 87086; 87186; 99283

== ENCOUNTER 2022-02-15 07:03 | Emergency (ER) | payer OTHER | END 2022-02-15 08:04 | disposition home or self-care (01) | LOC: NAV ERS 07:03 | DX: R11.0 Nausea (principal); T36.8X5A Adverse effect of other systemic antibiotics, initial encounter; N39.0 Urinary tract infection, site not specified | CPT/HCPCS: 99283 ==

== ENCOUNTER 2022-07-10 01:25 | Emergency (ER) | payer OTHER ==
[2022-07-10] MEDS ORDERED: Ibuprofen 200 MG TAB ONE (01:52)
== END 2022-07-10 01:59 | disposition home or self-care (01) ==
LOC: NAV ERS 01:25
DX: K04.7 Periapical abscess without sinus (principal); K02.9 Dental caries, unspecified
CPT/HCPCS: 99282

== ENCOUNTER 2023-02-24 06:18 | Emergency (ER) | payer OTHER ==
[2023-02-24 06:43] LABS: Bilirubin Negative (Negative); Blood, Urine Large (Negative); Clarity Cloudy (Clear); Glucose, Urine (Dipstick) Negative (Negative); Ketone, Urine Negative (Negative); Leukocyte Large (Negative); Nitrite Negative (Negative); Protein, Urine (Dipstick) > or equal to 300 mg/dL (Neg-Trace); Specific Gravity, Urine 1.025 (1.005-1.030); Urobilinogen 0.2 mg/dL (Less than 2)
[2023-02-24 06:49] LABS: CAUTI Indications for Culture Acute Hematuria; RBC/HPF Greater than 50 HPF (0-3)
[2023-02-24 06:50] LABS: Bacteria/HPF 1+ HPF (None Seen); Other Microscopic Description GLITTER CELLS
[2023-02-24 06:51] LABS: Urine Culture Reflex Yes Yes
[2023-02-24] MEDS ORDERED: Cipro 250 MG TAB ONE (07:14)
== END 2023-02-24 07:16 | disposition home or self-care (01) ==
LOC: NAV ERS 06:18
DX: N39.0 Urinary tract infection, site not specified (principal)
CPT/HCPCS: 81001; 87086; 99283